=== PATIENT | female | born 1955 | race Caucasian/White ===

== ENCOUNTER 2025-05-24 12:47 | Outpatient (CLI) | payer MEDICARE ==
--- NOTE | 2025-05-24 16:50 | RADIOLOGY REPORT ---
EXAM: CT CT UPPER EXTREM(SHOULDER/ARM) INDICATION: PAIN L CLAVICLE TECHNIQUE: Axial images of left upper extremity have been obtained along with coronal and sagittal re formatted images. All CT scans at this facility use dose modulation, iterative reconstruction, and/or weight based dosing when appropriate to reduce radiation dose to as low as reasonably achievable. COMPARISON: None FINDINGS: BONES: No CT evidence of an acute fracture or aggressive osseous lesion. MUSCLES: No abnormal attenuation. JOINT SPACES: No joint effusion. Mild degenerative change of the left acromioclavicular joint and lef t glenohumeral joint. TENDONS/LIGAMENTS: Intact. OTHER: Patchy areas of ground-glass in the left lung field which may be related to mosaic attenuation given expiratory phase of imaging. Coronary artery calcifications. IMPRESSION: 1. No CT evidence of an acute fracture.
== END 2025-05-24 23:59 | disposition home or self-care (01) ==
LOC: RAD 12:47
PROVIDERS: ATTEND Pediatrics Sports Medicine
DX: M89.8X1 Other specified disorders of bone, shoulder (principal)
CPT/HCPCS: 73200